=== PATIENT | female | born 1990 | race American Indian/Alaskan Native ===

== ENCOUNTER 2017-03-06 10:41 | Emergency (ER) | payer SELFPAY ==
[2017-03-06 11:09] VITALS: BP 145/93
[2017-03-06] MEDS ORDERED: NORCO 5/325 PO ONE (14:13)
--- NOTE | 2017-03-06 14:16 | Emergency Department Report ---
ED ENT HPI - General Chief complaint: Earache Stated complaint: EAR PAIN/WORSHIP PAIN Time Seen by Provider: 03/06/17 14:12 Source: patient Mode of arrival: Ambulatory Limitations: No Limitations - History of Present Illness Initial comments: 27-year-old -[place] female with a past medical history nothing, currently takes no medication has no known drug allergies. She reports that she has a right ear pain and swelling. Patient points that she was seen by another hospital and diagnosed with a URI. She states that they gave her some eardrops ,Ultram, and motrin which has not helped. Patient denies any fever chills no nausea no vomiting does not use ear plugs. She says that there is tenderness to her right temporal. MD complaint: ear pain -: week(s) (1) Location: R ear Severity scale (0 -10): 10 Quality: stabbing, aching Improves with: none Worsens with: none - Related Data Previous Rx's Medication Instructions Recorded Last Taken Type Acetaminophen/Codeine [Tylenol 1 tab PO Q6H PRN #20 tab 03/06/17 Unknown Rx /Codeine # 3 tab] Clindamycin [Clindamycin CAP] 300 mg PO Q8H #30 cap 03/06/17 Unknown Rx Allergies Allergy/AdvReac Type Severity Reaction Status Date / Time No Known Allergies Allergy Unverified 03/06/17 11:04 ED Dental HPI - General Chief complaint: Earache Stated complaint: EAR PAIN/WORSHIP PAIN Time Seen by Provider: 03/06/17 14:12 Source: patient Mode of arrival: Ambulatory Limitations: No Limitations - Related Data Previous Rx's Medication Instructions Recorded Last Taken Type Acetaminophen/Codeine [Tylenol 1 tab PO Q6H PRN #20 tab 03/06/17 Unknown Rx /Codeine # 3 tab] Clindamycin [Clindamycin CAP] 300 mg PO Q8H #30 cap 03/06/17 Unknown Rx Allergies Allergy/AdvReac Type Severity Reaction Status Date / Time No Known Allergies Allergy Unverified 03/06/17 11:04 ED Review of Systems ROS: Stated complaint: EAR PAIN/WORSHIP PAIN Other details as noted in HPI ED Past Medical Hx - Past Medical History Previous Medical History?: No - Surgical History Past Surgical History?: No - Social History Smoking Status: Never Smoker Substance Use Type: None - Medications Home Medications: Home Medications Medication Instructions Recorded Confirmed Last Taken Type Acetaminophen/Codeine [Tylenol 1 tab PO Q6H PRN #20 tab 03/06/17 Unknown Rx /Codeine # 3 tab] Clindamycin [Clindamycin CAP] 300 mg PO Q8H #30 cap 03/06/17 Unknown Rx ED Physical Exam - General Limitations: No Limitations General appearance: alert, in no apparent distress - Head Head exam: Present: atraumatic, normocephalic - Expanded Head Exam Expanded Head exam: Present: tenderness of temporal artery - Eye Eye exam: Present: normal appearance - ENT ENT exam: Present: TM's normal bilaterally, normal external ear exam - Expanded ENT Exam Expanded Teeth exam: Present: dental caries (1). Absent: gingival enlargement Throat exam: Positive: normal inspection - Neck Neck exam: Present: normal inspection ED Course Vital Signs 03/06/17 03/06/17 11:05 14:31 Temperature 98.3 F Pulse Rate 100 H Respiratory 22 16 Rate Blood Pressure 145/93 O2 Sat by Pulse 100 Oximetry - Reevaluation(s) Reevaluation #1: 03/06/17 15:21 Patient reports that she feels much better after having the pain medication and steroids. ED Medical Decision Making - Medical Decision Making Patient Been evaluated by the provider faster. Discussed the patient will give her pain medication for a steroid in place from clindamycin for possible tooth infection. Also thinking that she may have a temper arthritis to place her on prednisone 1 dose here. Have her follow up with ear nose and throat. Critical care attestation.: If time is entered above; I have spent that time in minutes in the direct care of this critically ill patient, excluding procedure time. ED Disposition Clinical Impression: Pain, ear, Dental caries, Temporal pain Disposition: DISCHARGED TO HOME OR SELFCARE Is pt being admited?: No Does the pt Need Aspirin: No Condition: Stable Instructions: Dental Caries (ED) Additional Instructions: Please take antibiotics as prescribed. Take Tylenol No. 3 with caution to not operate heavy machinery. Follow up with the criminal researcher if pain continues or gets worse. Prescriptions: Acetaminophen/Codeine [Tylenol /Codeine # 3 tab] 1 tab PO Q6H PRN #20 tab PRN Reason: Pain Clindamycin [Clindamycin CAP] 300 mg PO Q8H #30 cap Referrals: [facility] [Provider Group] - 3-5 Days [facility] [Provider Group] - 3-5 Days PRIMARY [facility]ARE, [Primary Care Provider] - 3-5 Days HANSA TELLEZ MD [Staff Physician] - 3-5 Days Forms: Work/School Release Form(ED)
[2017-03-06] MEDS ORDERED: DELTASONE PO NR (15:00)
== END 2017-03-06 15:28 | disposition home or self-care (01) ==
LOC: ED 10:41
DX: H92.01 Otalgia, right ear (principal); K02.9 Dental caries, unspecified; R51 Headache
CPT/HCPCS: 99282; J7512

== ENCOUNTER 2017-03-12 20:03 | Emergency (ER) | payer SELFPAY ==
--- NOTE | 2017-03-12 23:41 | Emergency Department Report ---
ED General Adult HPI - General Chief complaint: Earache Stated complaint: RIGHT EAR PAIN Time Seen by Provider: 03/12/17 23:34 Source: patient, RN notes reviewed, old records reviewed Mode of arrival: Ambulatory Limitations: No Limitations - History of Present Illness Initial comments: This is a 27-year-old female. She is previously. The patient indicates that she is not . The patient presents to the ER complaining of right-sided temporal pain, headache pain, back pain. The pain is throbbing and achy. It has been present for weeks to months. It is not sudden or thunderclap in nature. He did not which maximal intensity within an hour. Patient describes chronic dentalgia. There is no stridor or dysphonia. There is some sensitivity to liquids. There is no fevers or chills, no chest pain or shortness of breath, no extremity weakness. No extremity numbness. There is no tinnitus, no vertigo, no change in auditory acuity. -: Gradual, week(s) Location: head Severity scale (0 -10): 4 Quality: aching Consistency: intermittent Improves with: medication, rest Worsens with: movement Associated Symptoms: headaches. denies: confusion, chest pain, cough, diaphoresis, fever/chills, loss of appetite, malaise, nausea/vomiting, rash, seizure, shortness of breath, syncope, weakness - Related Data Previous Rx's Medication Instructions Recorded Last Taken Type Acetaminophen/Codeine [Tylenol 1 tab PO Q6H PRN #20 tab 03/06/17 Unknown Rx /Codeine # 3 tab] Chlorhexidine Mouthwash [Peridex] 15 ml MM BID #1 bottle 03/12/17 Unknown Rx Ibuprofen [Motrin] 600 mg PO Q8H PRN #30 tablet 03/12/17 Unknown Rx Allergies Allergy/AdvReac Type Severity Reaction Status Date / Time No Known Allergies Allergy Unverified 03/06/17 11:04 ED Review of Systems ROS: Stated complaint: RIGHT EAR PAIN Other details as noted in HPI Constitutional: denies: fever, malaise Eyes: denies: eye pain, eye discharge ENT: dental pain Respiratory: denies: cough Cardiovascular: denies: chest pain Gastrointestinal: denies: abdominal pain, vomiting Genitourinary: as per HPI Musculoskeletal: as per HPI Neurological: headache Psychiatric: as per HPI ED Past Medical Hx - Past Medical History Previous Medical History?: Yes Additional medical history: Obesity - Surgical History Past Surgical History?: Yes Additional Surgical History: C-Sec x 3 - Social History Smoking Status: Never Smoker Substance Use Type: None - Medications Home Medications: Home Medications Medication Instructions Recorded Confirmed Last Taken Type Acetaminophen/Codeine [Tylenol 1 tab PO Q6H PRN #20 tab 03/06/17 03/12/17 Unknown Rx /Codeine # 3 tab] Chlorhexidine Mouthwash [Peridex] 15 ml MM BID #1 bottle 03/12/17 Unknown Rx Ibuprofen [Motrin] 600 mg PO Q8H PRN #30 tablet 03/12/17 Unknown Rx ED Physical Exam - General Limitations: No Limitations General appearance: obese - Head Head exam: Present: atraumatic, normocephalic, other (there is reproducible left -sided temporal tenderness. There is no redness, pus or streaking. There is no pulsatile mass. No vesicular lesions are noted.) - Eye Eye exam: Present: normal appearance, PERRL, EOMI, other (visual acuity intact to finger counting, color perception, reading at a close distance). Absent: nystagmus - ENT ENT exam: Present: normal orophraynx (numerous dental caries, cavities, plaque is noted. No gingival redness or erythema.), mucous membranes moist, TM's normal bilaterally, normal external ear exam, other (there is no mastoid tenderness. The helix is nontender bilaterally.) - Neck Neck exam: Present: normal inspection, full ROM. Absent: tenderness, meningismus - Respiratory Respiratory exam: Present: normal lung sounds bilaterally. Absent: respiratory distress, wheezes, rales, rhonchi, stridor, chest wall tenderness, accessory muscle use, decreased breath sounds, prolonged expiratory - Cardiovascular Cardiovascular Exam: Present: regular rate, normal rhythm, normal heart sounds. Absent: bradycardia, tachycardia, irregular rhythm, systolic murmur, diastolic murmur, rubs, gallop - GI/Abdominal GI/Abdominal exam: Present: soft, normal bowel sounds. Absent: distended, tenderness, guarding, rebound, rigid, pulsatile mass - Extremities Exam Extremities exam: Present: normal inspection, full ROM, normal capillary refill. Absent: tenderness, pedal edema, joint swelling, calf tenderness - Back Exam Back exam: Present: normal inspection, full ROM. Absent: tenderness, CVA tenderness (R), CVA tenderness (L), muscle spasm, paraspinal tenderness, vertebral tenderness - Neurological Exam Neurological exam: Present: alert, oriented X3, normal gait, other (Extraocular movements intact. Tongue midline. No facial droop. Facial sensation intact to light touch in the V1, V2, V3 distribution bilaterally. 5 and 5 strength in 4 extremities.. Sensation is intact to light touch in 4 extremities.). Absent : motor sensory deficit - Psychiatric Psychiatric exam: Present: normal affect, normal mood - Skin Skin exam: Present: warm, dry, intact, normal color. Absent: rash ED Course Vital Signs 03/12/17 03/12/17 20:40 23:43 Temperature 98.8 F Pulse Rate 109 H 95 H Respiratory 18 18 Rate Blood Pressure 137/98 124/80 [Right] O2 Sat by Pulse 100 98 Oximetry ED Medical Decision Making - Lab Data Vital Signs 03/12/17 03/12/17 20:40 23:43 Temperature 98.8 F Pulse Rate 109 H 95 H Respiratory 18 18 Rate Blood Pressure 137/98 124/80 [Right] O2 Sat by Pulse 100 98 Oximetry - Medical Decision Making Differential diagnosis: Migraine headache, tension headache, cluster headache, dentalgia, dental caries, TMJ Assessment and plan: 27-year-old female with acute on chronic headache, reproducible temporal muscular pain, poor dentition, no evidence of intraoral abscess, deep space neck abscess. She is afebrile, tachycardia has resolved, reassuring vital signs, has a GCS of 15, with NIH score 0. I don't believe she requires clindamycin at this time. We will discontinue this, and initiate chlorhexidine mouthwash. The patient's pain was treated symptomatically. The patient is given a listing of numerous low cost dental clinics in the [facility], and instructed to follow up with outpatient dentist/oral surgeon. She can continue [id number] Motrin, acetaminophen as needed for pain. She can follow-up. Return precautions are reviewed. Critical care attestation.: If time is entered above; I have spent that time in minutes in the direct care of this critically ill patient, excluding procedure time. ED Disposition Clinical Impression: Dental caries, Temporal pain Disposition: DISCHARGED TO HOME OR SELFCARE Is pt being admited?: No Does the pt Need Aspirin: No Condition: Stable Instructions: Toothache (ED), Dental Caries (ED) Additional Instructions: Discontinue clindamycin. Follow up with the dentist as soon as possible. If taking ibuprofen that I have prescribed for you, do not overlap or combine with [id number] Motrin, ibuprofen, Aleve, aspirin. Follow up with a dentist as soon as possible, return to the ER right away with fevers, chills, chest pain , shortness of breath, confusion, intractable nausea or vomiting, inability to tolerate liquid feeds. For your convenience, I have listed a number of low-cost dental clinics in the replaced by [facility]. Prescriptions: Chlorhexidine Mouthwash [Peridex] 15 ml MM BID #1 bottle Ibuprofen [Motrin] 600 mg PO Q8H PRN #30 tablet PRN Reason: Pain Referrals: PRIMARY CARE, [Primary Care Provider] - 3-5 Days [facility] [Outside] - 3-5 Days
[2017-03-12 23:43] VITALS: BP 124/80
== END 2017-03-13 00:32 | disposition home or self-care (01) ==
LOC: ED 20:03
DX: K02.9 Dental caries, unspecified (principal); M26.621 Arthralgia of right temporomandibular joint
CPT/HCPCS: 99282